=== PATIENT | male | born 1995 | race Caucasian/White ===

== ENCOUNTER 2016-12-16 13:09 | Emergency (ER) | payer OTHER ==
[~2016-12-16] VITALS: Ht 180.3 cm; Wt 113.7 kg
[2016-12-16 13:12] VITALS: BP 138/93; PULSE 72; TEMP 36.8; O2SAT 97; Ht 180.3 cm; Wt 113.7 kg
[2016-12-16] MEDS ORDERED: PENI-82 PO (13:46)
[2016-12-16] MEDS ORDERED: HYDR-5688 PO (13:46)
--- NOTE | 2016-12-16 13:47 | EMERGENCY ROOM VISIT NOTE ---
ED Visit Note First contact with patient: 13:31 CHIEF COMPLAINT: Toothache. HISTORY OF PRESENT ILLNESS: This is a 21-year-old male who ambulates into the complaining of dental pain. He reports a progressive dental pain for hours over the left mandible. The pain is now steady and severe and radiates to the face. He states that he often has an area of drainage to the tooth which was A year ago. He states that lately over the last 2-3 days he has not been able to get anything to drain and has noticed increased swelling and pain. Currently he is complaining of pain in the area of tooth . He rates his discomfort 6/10. He denies any drainage, facial swelling, trouble swallowing. REVIEW OF SYSTEMS: As noted above in History of Present Illness. 8 body systems were reviewed with this patient and found to be negative unless noted above otherwise. PMH: . None CURRENT MEDICATION: . None ALLERGIES TO MEDICATION: Patient denies. SOCIAL HISTORY: The patient recently moved to the area. He does not smoke PHYSICAL EXAM: Vital Signs: Temperature 36.8C orally; blood pressure ; heart rate ; respiratory rate . General: This is a 21-year-old male in no acute distress nontoxic appearing, afebrile and hemodynamically stable. Neurological: Awake, alert and oriented to person, place and time. Answering questions appropriately and following commands. Normal gait. Good hand eye coordination. No focal motor or sensory deficits. Skin: Warm, dry and pink. No soft tissue lesions, rashes, or trauma noted. HEENT: Atraumatic and normocephalic. Oral cavity is moist and pink. Airway is patent. Uvula is midline and no abscesses are seen. Airway is patent. Speech is normal. No drooling. No intraoral trauma is noted. There is no obvious signs of dental decay. No abscesses, erythema identified. There is mild edema noted to the left upper gum. There is no drainable abscess at this time. No cervical or submandibular lymphadenopathy. I reviewed the prescription drug monitoring website. The patient has filled several narcotic prescriptions but none recently. Current/Historical Medications Scheduled Penicillin V Potassium (Veetids), 500 MG PO QID Scheduled PRN Hydrocodone/Acetaminophen 5MG/325MG (Sun 5MG/325MG), 1 TABLET PO Q4H PRN for Pain Allergies Coded Allergies: No Known Allergies (Unverified , 12/16/16) Vital Signs Date Time Temp Pulse Resp B/P Pulse Ox O2 Delivery O2 Flow Rate FiO2 12/16/16 13:12 36.8 72 18 138/93 97 Room Air Departure Information Impression Primary Impression: Dental caries Dispostion Home / Self-Care Condition GOOD Prescriptions Hydrocodone/Acetaminophen 5MG/325MG (Sun 5MG/325MG) Tab 1 TABLET PO Q4H Y for Pain, #10 TAB For Initial Treatment Prov: Neida Oneal PA-C 12/16/16 Penicillin V Potassium (Veetids) 500 Mg Tab 500 MG PO QID, #40 TAB Prov: Neida Oneal PA-C 12/16/16 Referrals No Doctor, Assigned (PCP) Patient Instructions [facility] Additional Instructions Pen-Vee K 4 times daily for 10 days.Sun one tablet every 6 hours if needed for worse pain. Do not drink or drive while taking Sun and do not take with Tylenol. Followup with a dentist for definitive management of your tooth. Return with high fevers, worsening pain or swelling.
== END 2016-12-16 13:59 | disposition home or self-care (01) ==
LOC: C.EDB 13:10 → C.EDD 13:59
DX: K02.9 Dental caries, unspecified (principal)

== ENCOUNTER 2017-06-08 10:12 | Emergency (ER) | payer OTHER ==
[~2017-06-08] VITALS: Ht 180.3 cm; Wt 97.0 kg
[~2017-06-08 10:12] MED LIST: HYDR-5688 PO; PENI-82 PO
[2017-06-08 10:15] VITALS: TEMP 36.6; Ht 180.3 cm; Wt 97.0 kg
--- NOTE | 2017-06-08 11:21 | EMERGENCY ROOM VISIT NOTE ---
ED Visit Note First contact with patient: 11:05 CHIEF COMPLAINT: Foot pain HISTORY OF PRESENT ILLNESS: This 21-year-old male patient presents to the emergency department ambulatory complaining of swelling and pain in the right foot at rest and worse with weight bearing. The patient states that he woke up his knee was hurting. He states that his knee gave out and caused him to slip down an embankment at work and injured his right foot. The patient rates the pain as sharp and 6/10. The patient has no relief of the pain. The patient is able to walk. No numbness or weakness. No ankle pain. There are no lacerations of the foot. The patient is able to move all of their toes and their ankle without pain. The patient states that yesterday at work he was doing more physical labor than usual. He woke this morning with right knee pain. His right knee gave out and he slipped injuring his right foot. He has a history of surgery, plate and screws in the right foot. REVIEW OF SYSTEMS: GENERAL: A 6 system review of systems was completed with positives and pertinent negatives in the HPI. ALLERGIES: No known drug allergies MEDICATIONS: None PMH: None SOCIAL HISTORY: The patient lives locally. He is employed. He is a smoker. PHYSICAL EXAM: Vital Signs: Reviewed Nurse's notes, vital signs stable. GENERAL : This is a 21-year-old male, in no acute distress, but appears in pain, well- developed, well-nourished. MUSCULOSKELETAL: There is no visual deformity of the right foot. There is no erythema no ecchymosis. There is no warmth. There is tenderness and swelling over the dorsal aspect of the right foot. The range of motion of the right foot is minimally limited secondary to pain. There is no tenderness over the plantar fascia. The skin is intact and there are no lacerations or puncture wounds. Dorsalis pedis pulse 2+. Capillary refill less than 2 seconds. The right knee is without effusion, deformity, ecchymosis. There is minimal tenderness to the right lateral joint line. There is pain with Sreekanth's. There is no obvious laxity on examination. EMERGENCY DEPARTMENT COURSE: I examined the patient. An X-ray of the right foot and knee were reviewed by myself and radiology and reveals changes to the surgical site of the right foot which the patient states has been known. The patient did have some tenderness to the right fourth toe. This was not adequately visualized on the x-ray of the foot. Therefore, a dedicated toe x- ray was performed. There is no evidence for fracture or dislocation at the fourth toe. The patient was advised he will need to follow-up with orthopedics for further evaluation and management. He should return to the ER with any worsening symptoms. The patient was placed in a post-op shoe. The patient was discharged home in good condition. [~ rep ct add3]] RIGHT FOURTH TOE 3 VIEWS CLINICAL HISTORY: Fourth toe injury. FINDINGS: 3 views of the right fourth toe are correlated with radiographs of the right foot performed the same day 06/08/2017. The skeletal structures are osteopenic. There is no radiographic evidence of fourth toe fracture. The fourth metatarsophalangeal and interphalangeal joints appear preserved. Chronic posttraumatic deformity and buttress plates are identified in the second through fifth metatarsals. There is a fractured cortical lag screw transfixing the base of the buttress plate in the fifth metatarsal, and the screw protrudes towards the overlying soft tissues. IMPRESSION: 1. No acute bony abnormality seen in the fourth toe. 2. Chronic posttraumatic deformity and postoperative change is seen in the second through fifth metatarsals. 3. Again noted is a fractured screw transfixing the fifth metatarsal buttress plate. The proximal fragment protrudes towards overlying soft tissues. Follow-up of the patient's foot surgeon is recommended. RIGHT FOOT MIN 3 VIEWS ROUTINE CLINICAL HISTORY: 21 years-old Male presenting with fall, right foot pain, h/o foot surgery Right. TECHNIQUE: Frontal, oblique, and lateral views of the right foot were obtained. COMPARISON: None. FINDINGS: Cortical compression plate and screw fixation of the third through the fifth metatarsals noted as well as a long screw fixation across the bases of the fourth and fifth metatarsals. One of the cortical compression screws at the base of the fifth metatarsal has backed out and is impacting the overlying soft tissues. Additionally, there is suggestion of radiolucency along the long screw track across the bases of the fourth and fifth metatarsals. No acute fracture or malalignment. Post traumatic deformities of the neck some of the third and fourth metatarsals. IMPRESSION: One of the screws at the base of the fifth metatarsal has backed out and is impacting the overlying soft tissues. Additionally, radiolucency suggested along the course of the long screw transiting the bases of the fourth and fifth metatarsals. This is nonspecific but raises concern for loosening versus infection. [~ rep ct add3]] RIGHT KNEE 3 VIEWS CLINICAL HISTORY: 21 years-old Male presenting with fall, right knee pain Right. TECHNIQUE: Frontal, lateral, and sunrise views of the right knee were obtained. COMPARISON: None. FINDINGS: No acute fracture or malalignment. No significant degenerative change. No large effusion evident. IMPRESSION: No acute osseous injury of the right knee. Current/Historical Medications No Active Prescriptions or Reported Meds Allergies Coded Allergies: No Known Allergies (Unverified , 06/08/17) Vital Signs Date Time Temp Pulse Resp B/P (MAP) Pulse Ox O2 Delivery O2 Flow Rate FiO2 06/08/17 13:47 81 20 137/81 99 06/08/17 10:15 36.6 79 18 160/101 98 Room Air Departure Information Impression Primary Impression: Foot pain Additional Impression: Knee sprain Dispostion Home / Self-Care Condition GOOD Prescriptions No Active Prescriptions or Reported Meds Referrals No Doctor, Assigned (PCP) Aamir Ny M.D. Forms HOME CARE DOCUMENTATION FORM, IMPORTANT VISIT INFORMATION, Work Instructions Return To Work: 1 day Additional Instructions: must wear post op shoe with limited use of the right leg/foot for 1 week Patient Instructions [facility] Additional Instructions Motrin 600 mg every 6-8 hours for moderate pain Rest, ice and elevation of the right foot and knee Contact orthopedics today to schedule a follow-up appointment for further evaluation and management Return with worsening symptoms Problem Qualifiers Primary Impression: Foot pain Laterality: right Qualified Codes: M79.671 - Pain in right foot Additional Impression: Knee sprain Encounter type: initial encounter Laterality: right
--- NOTE | 2017-06-08 12:00 | DIAGNOSTIC IMAGING REPORT ---
RIGHT KNEE 3 VIEWS CLINICAL HISTORY: 21 years-old Male presenting with fall, right knee pain Right. TECHNIQUE: Frontal, lateral, and sunrise views of the right knee were obtained. COMPARISON: None. FINDINGS: No acute fracture or malalignment. No significant degenerative change. No large effusion evident. IMPRESSION: No acute osseous injury of the right knee. Electronically signed by: Victor M Martinez M.D. 06/08/2017 11:59 AM Dictated Date/Time: 06/08/2017 11:58 AM
--- NOTE | 2017-06-08 12:03 | DIAGNOSTIC IMAGING REPORT ---
RIGHT FOOT MIN 3 VIEWS ROUTINE CLINICAL HISTORY: 21 years-old Male presenting with fall, right foot pain, h/o foot surgery Right. TECHNIQUE: Frontal, oblique, and lateral views of the right foot were obtained. COMPARISON: None. FINDINGS: Cortical compression plate and screw fixation of the third through the fifth metatarsals noted as well as a long screw fixation across the bases of the fourth and fifth metatarsals. One of the cortical compression screws at the base of the fifth metatarsal has backed out and is impacting the overlying soft tissues. Additionally, there is suggestion of radiolucency along the long screw track across the bases of the fourth and fifth metatarsals. No acute fracture or malalignment. Post traumatic deformities of the neck some of the third and fourth metatarsals. IMPRESSION: One of the screws at the base of the fifth metatarsal has backed out and is impacting the overlying soft tissues. Additionally, radiolucency suggested along the course of the long screw transiting the bases of the fourth and fifth metatarsals. This is nonspecific but raises concern for loosening versus infection. Electronically signed by: Victor M Martinez M.D. 06/08/2017 12:02 PM Dictated Date/Time: 06/08/2017 11:59 AM
--- NOTE | 2017-06-08 13:11 | DIAGNOSTIC IMAGING REPORT ---
RIGHT FOURTH TOE 3 VIEWS CLINICAL HISTORY: Fourth toe injury. FINDINGS: 3 views of the right fourth toe are correlated with radiographs of the right foot performed the same day 06/08/2017. The skeletal structures are osteopenic. There is no radiographic evidence of fourth toe fracture. The fourth metatarsophalangeal and interphalangeal joints appear preserved. Chronic posttraumatic deformity and buttress plates are identified in the second through fifth metatarsals. There is a fractured cortical lag screw transfixing the base of the buttress plate in the fifth metatarsal, and the screw protrudes towards the overlying soft tissues. IMPRESSION: 1. No acute bony abnormality seen in the fourth toe. 2. Chronic posttraumatic deformity and postoperative change is seen in the second through fifth metatarsals. 3. Again noted is a fractured screw transfixing the fifth metatarsal buttress plate. The proximal fragment protrudes towards overlying soft tissues. Follow-up of the patient's foot surgeon is recommended. Electronically signed by: Robin Pineda M.D. 06/08/2017 1:10 PM Dictated Date/Time: 06/08/2017 1:07 PM
[2017-06-08 13:47] VITALS: BP 137/81; PULSE 81; O2SAT 99
== END 2017-06-08 13:49 | disposition home or self-care (01) ==
LOC: C.EDB 10:13 → C.EDD 13:49
DX: M79.671 Pain in right foot (principal); S83.91XA Sprain of unspecified site of right knee, initial encounter; W01.0XXA Fall on same level from slipping, tripping and stumbling without subsequent striking against object, initial encounter; F17.200 Nicotine dependence, unspecified, uncomplicated

== ENCOUNTER 2017-07-19 19:02 | Emergency (ER) | payer SELFPAY ==
[~2017-07-19] VITALS: Ht 180.3 cm; Wt 101.0 kg
[2017-07-19] MEDS ORDERED: SODIUM CHLORIDE 0.9% 1000ML 1,000 ML IV STA (19:15)
--- NOTE | 2017-07-19 19:19 | EMERGENCY ROOM VISIT NOTE ---
History Report prepared by Jayesh: Naveed Deutsch Under the Supervision of: Dr. Gaudencio Fierro M.D. First contact with patient: 19:15 Chief Complaint: MENTAL HEALTH EVALUATION Stated Complaint: OVERDOSE, LACERATIONS TO ARM NECK & CHEST MHID History of Present Illness The patient is a 22 year old male who presents to the Emergency Room for a mental health evaluation. He states that he has been having difficulty with his relationship with his . He states that she "does things" to his daughter while he is at work. He does not want to deal with these things anymore. He took 5 pills in total from his friend. He only remembers Xanax being one of the pills. He also inflicted self-harm to himself using a blade on his left arm, chest, and neck. He also drank alcohol. He admits suicidal ideation. 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 Positive SI. Review of Systems See HPI for pertinent positives & negatives. A total of 10 systems reviewed and were otherwise negative. Family History Patient reports no known family medical history. Social History Smoking Status: Former Smoker Alcohol Use: occasionally Drug Use: other Marital Status: Housing Status: lives with family Occupation Status: employed Current/Historical Medications No Active Prescriptions or Reported Meds Allergies Coded Allergies: No Known Allergies (Unverified , 07/19/17) Physical Exam Vital Signs Date Time Temp Pulse Resp B/P (MAP) Pulse Ox O2 Delivery O2 Flow Rate FiO2 07/20/17 09:48 37.0 58 18 119/64 96 07/20/17 09:13 58 18 119/64 96 Room Air 07/20/17 09:02 135 19 80 07/20/17 08:57 141 20 81 07/20/17 08:52 135 20 80 07/20/17 08:47 57 1 07/20/17 08:42 46 8 07/20/17 08:37 48 4 07/20/17 08:32 47 3 07/20/17 08:27 50 8 07/20/17 08:22 49 19 07/20/17 08:17 43 2 07/20/17 08:12 50 16 07/20/17 08:07 88 10 07/20/17 08:05 52 07/20/17 08:02 40 4 07/20/17 07:57 49 4 07/20/17 07:52 48 8 07/20/17 07:47 57 6 07/20/17 07:42 57 16 07/20/17 07:37 56 1 07/20/17 07:32 59 6 07/20/17 07:27 57 4 07/20/17 07:22 57 11 07/20/17 07:17 56 0 07/20/17 07:12 75 34 07/20/17 07:07 72 0 07/20/17 07:02 73 0 07/20/17 06:57 73 0 07/20/17 06:52 75 0 81 07/20/17 06:47 74 0 07/20/17 06:42 59 0 07/20/17 06:37 54 0 07/20/17 06:32 51 0 07/20/17 06:27 50 0 07/20/17 06:23 47 18 129/55 97 Room Air 07/20/17 06:22 49 0 07/20/17 06:17 55 07/20/17 06:12 60 07/20/17 06:07 66 07/20/17 06:02 52 07/20/17 05:57 50 07/20/17 05:52 86 07/20/17 05:47 57 22 07/20/17 05:42 71 19 07/20/17 05:37 60 22 07/20/17 05:32 72 21 07/20/17 05:27 60 10 07/20/17 05:22 65 22 07/20/17 05:17 57 20 100 07/20/17 05:12 58 20 100 07/20/17 05:07 55 19 100 07/20/17 05:02 56 19 100 07/20/17 04:57 50 21 100 07/20/17 04:57 50 07/20/17 04:52 51 20 07/20/17 04:47 51 19 07/20/17 04:42 54 22 07/20/17 04:37 54 22 07/20/17 04:32 63 16 95 07/20/17 04:27 53 19 96 07/20/17 04:22 54 17 95 07/20/17 04:17 64 19 97 07/20/17 04:12 62 20 97 07/20/17 04:07 64 20 97 07/20/17 04:02 71 20 96 07/20/17 03:57 65 19 96 07/20/17 03:52 74 20 97 07/20/17 03:47 73 19 96 07/20/17 03:42 66 20 96 07/20/17 03:37 63 18 96 07/20/17 03:32 57 20 97 07/20/17 03:27 56 15 97 07/20/17 03:22 67 19 96 07/20/17 03:17 54 20 97 07/20/17 03:12 57 22 96 07/20/17 03:07 56 20 96 07/20/17 03:02 60 22 96 07/20/17 02:57 63 20 97 07/20/17 02:52 55 20 97 07/20/17 02:47 56 20 96 07/20/17 02:42 65 19 96 07/20/17 02:37 64 20 96 07/20/17 02:32 63 20 95 07/20/17 02:27 72 15 97 07/20/17 02:22 64 14 96 07/20/17 02:17 63 10 96 07/20/17 02:12 64 8 96 07/20/17 02:07 64 4 95 07/20/17 02:02 56 0 96 07/20/17 01:57 60 0 96 07/20/17 01:52 56 7 96 07/20/17 01:47 61 0 96 07/20/17 01:42 65 14 96 07/20/17 01:37 66 9 96 07/20/17 01:32 64 15 96 07/20/17 01:27 65 14 96 07/20/17 01:22 68 18 96 07/20/17 01:17 70 19 96 07/20/17 01:12 75 20 96 07/20/17 01:07 73 19 96 07/20/17 01:02 75 21 96 07/20/17 00:57 72 20 97 07/20/17 00:52 73 20 96 07/20/17 00:51 62 07/20/17 00:47 68 21 96 07/20/17 00:42 67 21 96 07/20/17 00:37 62 22 96 07/20/17 00:32 64 18 96 07/20/17 00:27 66 22 95 07/20/17 00:22 64 26 94 07/20/17 00:17 68 25 95 07/20/17 00:12 85 19 96 07/20/17 00:07 67 20 96 07/20/17 00:02 71 19 96 07/19/17 23:57 68 20 96 07/19/17 23:52 64 18 96 07/19/17 23:47 63 17 96 07/19/17 23:42 74 19 96 07/19/17 23:37 74 20 96 07/19/17 23:32 74 20 96 07/19/17 23:27 74 20 96 07/19/17 23:22 75 20 95 07/19/17 23:17 73 21 96 07/19/17 23:12 73 21 96 07/19/17 23:07 69 22 95 07/19/17 23:02 72 19 97 07/19/17 22:57 67 22 96 07/19/17 22:52 63 20 96 07/19/17 22:47 67 19 96 07/19/17 22:42 57 18 96 07/19/17 22:37 82 16 98 07/19/17 22:32 69 22 94 07/19/17 22:27 62 19 95 07/19/17 22:22 69 20 95 07/19/17 22:17 71 20 95 07/19/17 22:12 71 20 95 07/19/17 22:07 72 19 95 07/19/17 22:02 75 16 95 07/19/17 21:57 77 20 95 07/19/17 21:52 76 19 95 07/19/17 21:47 79 20 95 07/19/17 21:42 81 20 94 07/19/17 21:37 80 19 95 07/19/17 21:32 76 18 132/43 98 Room Air 07/19/17 21:32 79 19 95 07/19/17 21:27 73 20 95 07/19/17 21:22 73 23 94 07/19/17 21:17 75 19 96 07/19/17 21:12 75 23 95 07/19/17 21:07 81 17 95 07/19/17 21:02 73 20 94 07/19/17 20:57 69 20 96 07/19/17 20:47 78 21 96 07/19/17 19:55 97 Room Air 07/19/17 19:52 72 24 07/19/17 19:47 75 23 07/19/17 19:42 74 23 07/19/17 19:37 80 19 96 07/19/17 19:35 96 Room Air 07/19/17 19:32 37.0 77 18 167/88 97 Room Air 07/19/17 19:32 78 25 98 07/19/17 19:27 80 23 07/19/17 19:23 85 07/19/17 19:22 85 19 99 07/19/17 19:17 87 26 100 07/19/17 19:12 82 22 167/88 100 Physical Exam GENERAL: Patient is a healthy-appearing well-nourished male HEAD: Normocephalic atraumatic EYES: Ocular movements intact pupils equal and react to light OROPHARYNX mucous membranes are moist no exudates present no erythema or edema present NECK: Supple no nuchal rigidity. Multiple superficial cuts present. Does not need to be sutured. CHEST: Good equal expansion. Multiple superficial cuts present. Does not need to be sutured. LUNGS: Clear and equal to auscultation CARDIAC: Normal S1 and S2 ABDOMEN: Soft nontender no guarding BACK: No CVA tenderness EXTREMITIES: Multiple superficial cuts to the left forearm. Does not need to be sutured. NEURO: Patient is following commands and answering questions appropriately. Alert and oriented x3 Cranial Nerves 2-12 grossly intact PSYCH: Flat affect. Positive SI. Medical Decision & Procedures Laboratory Results 07/19/17 19:45 Red Blood Count 4.89, Mean Corpuscular Volume 84.7, Mean Corpuscular Hemoglobin 27.6, Mean Corpuscular Hemoglobin Concent 32.6, Mean Platelet Volume 9.3, Neutrophils (%) (Auto) 74.4, Lymphocytes (%) (Auto) 13.6, Monocytes (%) (Auto) 10.3, Eosinophils (%) (Auto) 1.1, Basophils (%) (Auto) 0.3, Neutrophils # (Auto ) 5.60, Lymphocytes # (Auto) 1.02, Monocytes # (Auto) 0.77, Eosinophils # (Auto ) 0.08, Basophils # (Auto) 0.02 07/19/17 19:45 Test 07/19/17 19:45 07/19/17 19:53 07/19/17 20:08 07/19/17 20:53 White Blood Count 7.51 K/uL (4.8-10.8) Red Blood Count 4.89 M/uL (4.7-6.1) Hemoglobin 13.5 g/dL (14.0-18.0) Hematocrit 41.4 % (42-52) Mean Corpuscular Volume 84.7 fL (80-100) Mean Corpuscular Hemoglobin 27.6 pg (25-34) Mean Corpuscular Hemoglobin Concent 32.6 g/dl (32-36) Platelet Count 277 K/uL (130-400) Mean Platelet Volume 9.3 fL (7.4-10.4) Neutrophils (%) (Auto) 74.4 % Lymphocytes (%) (Auto) 13.6 % Monocytes (%) (Auto) 10.3 % Eosinophils (%) (Auto) 1.1 % Basophils (%) (Auto) 0.3 % Neutrophils # (Auto) 5.60 K/uL (1.4-6.5) Lymphocytes # (Auto) 1.02 K/uL (1.2-3.4) Monocytes # (Auto) 0.77 K/uL (0.11-0.59) Eosinophils # (Auto) 0.08 K/uL (0-0.5) Basophils # (Auto) 0.02 K/uL (0-0.2) RDW Standard Deviation 39.0 fL (36.4-46.3) RDW Coefficient of Variation 12.7 % (11.5-14.5) Immature Granulocyte % (Auto) 0.3 % Immature Granulocyte # (Auto) 0.02 K/uL (0.00-0.02) Prothrombin Time 11.0 SECONDS (9.0-12.0) Prothromb Time International Ratio 1.0 (0.9-1.1) Activated Partial Thromboplast Time 28.4 SECONDS (21.0-31.0) Partial Thromboplastin Ratio 1.1 Anion Gap 8.0 mmol/L (3-11) Est Creatinine Clear Calc Drug Dose 114.9 ml/min Estimated GFR () 97.5 Estimated GFR (Non- 84.1 BUN/Creatinine Ratio 10.3 (10-20) Calcium Level 8.5 mg/dl (8.5-10.1) Total Bilirubin 0.3 mg/dl (0.2-1) Direct Bilirubin 0.1 mg/dl (0-0.2) Aspartate Amino Transf (AST/SGOT) 35 U/L (15-37) Alanine Aminotransferase (ALT/SGPT) 54 U/L (12-78) Alkaline Phosphatase 80 U/L (45-117) Total Creatine Kinase 1253 U/L (39-308) Total Protein 6.7 gm/dl (6.4-8.2) Albumin 3.5 gm/dl (3.4-5.0) Lipase 322 U/L (73-393) Salicylates Level < 1.7 mg/dl (2.8-20) Acetaminophen Level < 2 ug/ml (10-30) Bedside Glucose 109 mg/dl (70-99) Ethyl Alcohol mg/dL < 3.0 mg/dl (0-3) Urine Color YELLOW Urine Appearance TURBID (CLEAR) Urine pH 6.0 (4.5-7.5) Urine Specific [place] 1.030 (1.000-1.030) Urine Protein NEG (NEG) Urine Glucose (UA) NEG (NEG) Urine Ketones TRACE (NEG) Urine Occult Blood NEG (NEG) Urine Nitrite NEG (NEG) Urine Bilirubin NEG (NEG) Urine Urobilinogen NEG (NEG) Urine Leukocyte Esterase NEG (NEG) Urine WBC (Auto) 1-5 /hpf (0-5) Urine RBC (Auto) 0-4 /hpf (0-4) Urine Hyaline Casts (Auto) 5-10 /lpf (0-5) Urine Epithelial Cells (Auto) 10-20 /lpf (0-5) Urine Bacteria (Auto) NEG (NEG) Urine Opiates Screen NEG (NEG) Urine Methadone, Qualitative NEG (NEG) Urine Barbiturates NEG (NEG) Urine Phencyclidine (PCP) Level NEG (NEG) Ur Amphetamine/Methamphetamine POS (NEG) MDMA (Ecstasy) Screen NEG (NEG) Urine Benzodiazepines Screen POS (NEG) Urine Cocaine Metabolite NEG (NEG) Urine Marijuana (THC) POS (NEG) Labs reviewed by ED physician. Medications Administered Medications (Trade) Dose Ordered Sig/Gabriele Route Start Time Stop Time Status Last Admin Dose Admin Sodium Chloride 1,000 ml @ 999 mls/hr Q1H1M STAT IV 07/19/17 19:15 07/19/17 20:15 DC 07/19/17 19:50 999 MLS/HR ECG Indication: toxicologic Rate (beats per minute): 72 Rhythm: normal sinus Findings: no acute ischemic change, no ectopy ED Course 1914: Past medical records reviewed. The patient was evaluated in room A7. A complete history and physical examination was performed. Ordered Sodium Chloride 1000 ml @ 999 mls/hr IV 0030: The patient was signed out to Dr. Gonzalez at the change in shifts. Medical Decision Differential diagnosis: Etiologies such as mood disorder, infection, hypoglycemia, electrolyte abnormalities, cardiac sources, intracerebral event, toxicologic, neurologic, as well as others were entertained. This is a 22-year-old male who presents emergency department after taking several pills including Suboxone as well as Xanax. The patient is not prescribed these pills. The patient is under stress at home as he feels he is getting a divorce from his . In addition the patient has also cut himself multiple times on his chest his neck as well as his arm. His tetanus shot is up -to-date. The patient was being medically cleared by me when he slowly became more more unresponsive. In retrospect I think the patient Xanax and Suboxone have interacted. He was placed on a monitor the probe position. He was monitored frequently throughout the night until his medications cleared his system. The patient was signed out to Dr. Gonzalez at change of shift. Medication Reconcilliation Current Medication List: was personally reviewed by me Blood Pressure Screening Patient's blood pressure: Elevated blood pressure Blood pressure disposition: Elevated BP felt to be situational Impression Primary Impression: Mood disorder Scribe Attestation The scribe's documentation has been prepared under my direction and personally reviewed by me in its entirety. I confirm that the note above accurately reflects all work, treatment, procedures, and medical decision making performed by me. Departure Information Dispostion Still a Patient Prescriptions No Active Prescriptions or Reported Meds Referrals No Doctor, Assigned (PCP) Patient Instructions My [facility]
[2017-07-19 19:32] VITALS: Ht 180.3 cm; Wt 101.0 kg
[2017-07-19 19:55] VITALS: O2SAT 97
[2017-07-19 20:02] LABS: BASO % 0.3 %; BASO ABS # 0.02 K/uL (0-0.2); COMPLETE YES; EOS % 1.1 %; HEMATOCRIT 41.4 % (42-52); IG% 0.3 %; LYMPH % 13.6 %; LYMPH ABS # 1.02 K/uL (1.2-3.4); MEAN CELL VOLUME 84.7 fL (80-100); MEAN CORPUSCULAR HEMOGLOBIN 27.6 pg (25-34); MEAN CORPUSCULAR HGB CONC 32.6 g/dl (32-36); MEAN PLATELET VOLUME 9.3 fL (7.4-10.4); MONO % 10.3 %; NEUT % 74.4 %; PLATELET COUNT 277 K/uL (130-400); RED BLOOD COUNT 4.89 M/uL (4.7-6.1); WHITE BLOOD COUNT 7.51 K/uL (4.8-10.8)
[2017-07-19 20:11] LABS: PARTIAL THROMBOPLASTIN RATIO 1.1
[2017-07-19 20:26] LABS: BUN/CREATININE RATIO 10.3 (10-20); CALCIUM 8.5 mg/dl (8.5-10.1); CREATININE 1.2 mg/dl (0.60-1.40); POTASSIUM 3.7 mmol/L (3.5-5.1)
[2017-07-19 20:27] LABS: ACETAMINOPHEN < 2 ug/ml (10-30)
[2017-07-19 21:10] LABS: URINE APPEARANCE TURBID (CLEAR); URINE BILIRUBIN NEG (NEG); URINE COLOR YELLOW; URINE NITRITE NEG (NEG); UROBILINOGEN NEG (NEG)
[2017-07-19 21:12] LABS: MANUAL MICROSCOPIC REQUIRED? NO; REVIEW REQ? NO
[2017-07-19 21:28] LABS: BENZODIAZEPINE, URINE POS (NEG); COCAINE,URINE NEG (NEG); PHENCYCLIDINE, URINE NEG (NEG)
--- NOTE | 2017-07-20 06:48 | EMERGENCY ROOM VISIT NOTE ---
ED Visit Note First contact with patient: 03:14 I received this patient in signout at the change of shift from Dr. Fierro pending a more sober state. The patient slept through the night. Mental health evaluation has been completed and a bed search is underway. Please see Dr. Garrett's notes for final disposition. The patient does not require any medications at this time.
[2017-07-20 09:48] VITALS: BP 119/64; PULSE 58; TEMP 37; O2SAT 96
--- NOTE | 2017-07-20 13:16 | EMERGENCY ROOM VISIT NOTE ---
ED Visit Note First contact with patient: 07:17 I assumed care at the change of shift, Dr. Gonzalez had been the physician just prior to me. The patient was undergoing a bed search for a voluntary psychiatric admission. He was accepted at [facility]. He will be sent there for his psychiatric stay. The paperwork for transport was completed. The patient has been cooperative while under my care.
[2017-07-22 09:58] LABS: HYDROXYETHYLFLURAZEPAM CONF NEGATIVE NG/ML (CUTOFF=50); HYDROXYMIDAZOLAM NEGATIVE NG/ML (CUTOFF=50); HYDROXYTRIAZOLAM CONF NEGATIVE NG/ML (CUTOFF=50); TEMAZEPAM CONF NEGATIVE NG/ML (CUTOFF=50)
== END 2017-07-20 09:49 ==
LOC: EDBD 19:02 → C.EDC 19:07 → C.EDA 07-20 09:49
DX: F39 Unspecified mood [affective] disorder (principal); S51.812A Laceration without foreign body of left forearm, initial encounter; S11.91XA Laceration without foreign body of unspecified part of neck, initial encounter; S21.119A Laceration without foreign body of unspecified front wall of thorax without penetration into thoracic cavity, initial encounter; T42.4X2A Poisoning by benzodiazepines, intentional self-harm, initial encounter; X78.8XXA Intentional self-harm by other sharp object, initial encounter; Z87.891 Personal history of nicotine dependence; Z63.79 Other stressful life events affecting family and household

== ENCOUNTER 2017-09-03 15:47 | Emergency (ER) | payer SELFPAY ==
[~2017-09-03] VITALS: Ht 180.3 cm; Wt 98.4 kg
[2017-09-03 15:53] VITALS: TEMP 36.5; Ht 180.3 cm; Wt 98.4 kg
[2017-09-03] MEDS ORDERED: LORAZEPAM 1 MG TAB SL STA (16:33)
--- NOTE | 2017-09-03 16:40 | EMERGENCY ROOM VISIT NOTE ---
History Report prepared by Jayesh: Bryce Duncan Under the Supervision of: Dr. Robin Garrett M.D. First contact with patient: 16:26 Chief Complaint: SEIZURE Stated Complaint: PASSED OUT,SEIZURE Nursing Triage Summary: "passed out" ? seizure activity History of Present Illness The patient is a 22 year old male who presents to the Emergency Room with complaints of an episode of syncope beginning an hour and a half ago. The patient states that he had a panic attack earlier today that might have caused his symptoms. He notes that he went to work today and began to feel lightheaded and had blurry vision. He reports that he took a break, and then proceeded to return to work. He states that the next thing he remembers was being on the ground with his coworkers surrounding him. He notes that his coworker told him that he was "shaking and having a seizure." He reports that his head hit a pile of mulch but denies any bumps on his head. He states that he has no previous history of seizures. He denies biting his tongue or urinating on himself. He notes that he had previously been taking Ativan for his depression, but reports that he stopped taking his medication a week ago after he ran out. He denies any history of kidney problems and diabetes, but notes that he had a history of bronchitis when he was younger. The patient states that he has tried to hurt himself in the past, but does not currently have any suicidal plans although he has had some recent random suicidal thoughts. Source of History: patient Onset: an hour and a half ago Position: other (global) Quality: other (syncope) Timing: other (an episode) Note: He complains of lightheadedness and blurry vision prior to his episode. He denies any bumps on his head, biting his tongue, or urinating himself. Review of Systems See HPI for pertinent positives & negatives. A total of 10 systems reviewed and were otherwise negative. Past Medical & Surgical Medical Problems: (1) Bronchitis (2) Depression Family History Patient reports no known family medical history. No pertinent family history stated. Social History Smoking Status: Current Every Day Smoker Alcohol Use: occasionally Drug Use: other Marital Status: Housing Status: lives with family Occupation Status: employed Current/Historical Medications Scheduled PRN Lorazepam (Ativan), 1 MG PO TID PRN for Anxiety/Agitation Allergies Coded Allergies: No Known Allergies (Unverified , 07/19/17) Physical Exam Vital Signs Date Time Temp Pulse Resp B/P (MAP) Pulse Ox O2 Delivery O2 Flow Rate FiO2 09/03/17 18:30 79 22 149/68 96 Room Air 09/03/17 17:39 67 16 135/74 96 09/03/17 17:39 69 09/03/17 15:53 36.5 90 20 157/87 97 Room Air Physical Exam GENERAL: Patient is in no acute distress. HEENT: No acute trauma, normocephalic atraumatic, mucous membranes moist, no nasal congestion, no scleral icterus. NECK: No stridor, no adenopathy, no meningismus, trachea is midline. LUNGS: Clear to auscultation bilaterally, no wheeze, no rhonchi, breath sounds equal. HEART: Without murmurs gallops or rubs, regular rate and rhythm. ABDOMEN: Soft, nontender, bowel sounds positive, no hernias, no peritonitis. EXTREMITIES: No cyanosis or edema, full range of motion of all the joints without pain or difficulty, no signs for acute trauma. NEUROLOGIC: Oriented x 3, no acute motor or sensory deficits, no focal weakness. SKIN: No rash, no jaundice, no diaphoresis. PSYCH: Cooperative, tearful at times, admits to suicidal thoughts with no plan or intent. Medical Decision & Procedures ER Provider Diagnostic Interpretation: Radiology results as stated below per my review and radiologist interpretation: HEAD CT NONCONTRAST Findings: A 2.2 cm retention cyst within the left sphenoid sinus. The mastoid air cells are clear. The calvarium and skull base are intact. The ventricles and sulci are within normal limits. There is no mass, hematoma, midline shift, or acute infarct. Impression: No acute intracranial abnormality. If this is the patient's first reported seizure then a follow-up nonemergent brain MRI is recommended for further evaluation. Electronically signed by: Erlin Rodriguez M.D. 09/03/2017 5:20 PM Laboratory Results 09/03/17 16:30 09/03/17 16:30 Test 09/03/17 16:30 09/03/17 16:50 09/03/17 16:53 Red Blood Count 5.24 M/uL (4.7-6.1) Mean Corpuscular Volume 87.8 fL (80-100) Mean Corpuscular Hemoglobin 29.6 pg (25-34) Mean Corpuscular Hemoglobin Concent 33.7 g/dl (32-36) RDW Standard Deviation 42.5 fL (36.4-46.3) RDW Coefficient of Variation 13.3 % (11.5-14.5) Mean Platelet Volume 9.2 fL (7.4-10.4) Anion Gap 9.0 mmol/L (3-11) Est Creatinine Clear Calc Drug Dose 114.4 ml/min Estimated GFR () 98.5 Estimated GFR (Non- 85.0 BUN/Creatinine Ratio 13.5 (10-20) Calcium Level 9.5 mg/dl (8.5-10.1) Total Bilirubin 0.6 mg/dl (0.2-1) Aspartate Amino Transf (AST/SGOT) 38 U/L (15-37) Alanine Aminotransferase (ALT/SGPT) 43 U/L (12-78) Alkaline Phosphatase 93 U/L (45-117) Total Protein 8.1 gm/dl (6.4-8.2) Albumin 4.5 gm/dl (3.4-5.0) Globulin 3.6 gm/dl (2.5-4.0) Albumin/Globulin Ratio 1.3 (0.9-2) Thyroid Stimulating Hormone (TSH) 1.100 uIu/ml (0.300-4.500) Salicylates Level < 1.7 mg/dl (2.8-20) Acetaminophen Level < 2 ug/ml (10-30) Urine Color DK YELLOW Urine Appearance CLEAR (CLEAR) Urine pH 5.5 (4.5-7.5) Urine Specific [place] 1.037 (1.000-1.030) Urine Protein TRACE (NEG) Urine Glucose (UA) NEG (NEG) Urine Ketones 1+ (NEG) Urine Occult Blood NEG (NEG) Urine Nitrite NEG (NEG) Urine Bilirubin NEG (NEG) Urine Urobilinogen NEG (NEG) Urine Leukocyte Esterase NEG (NEG) Urine WBC (Auto) 1-5 /hpf (0-5) Urine RBC (Auto) 5-10 /hpf (0-4) Urine Hyaline Casts (Auto) 1-5 /lpf (0-5) Urine Epithelial Cells (Auto) 5-10 /lpf (0-5) Urine Bacteria (Auto) NEG (NEG) Urine Opiates Screen NEG (NEG) Urine Methadone, Qualitative NEG (NEG) Urine Barbiturates NEG (NEG) Urine Phencyclidine (PCP) Level NEG (NEG) Ur Amphetamine/Methamphetamine NEG (NEG) MDMA (Ecstasy) Screen NEG (NEG) Urine Benzodiazepines Screen NEG (NEG) Urine Cocaine Metabolite NEG (NEG) Urine Marijuana (THC) POS (NEG) Ethyl Alcohol mg/dL < 3.0 mg/dl (0-3) Laboratory results reviewed by me. Medications Administered Medications (Trade) Dose Ordered Sig/Gabriele Route Start Time Stop Time Status Last Admin Dose Admin Lorazepam (Ativan Tab) 1 mg NOW STAT SL 09/03/17 16:33 09/03/17 16:36 DC 09/03/17 16:50 1 MG ECG Indication: syncope Rate (beats per minute): 75 Rhythm: normal sinus Findings: no acute ischemic change, no ectopy ED Course 1629: The patient was evaluated in room B11. A complete history and physical exam was performed. 1633: Lorazepam 1mg SL 1747: The psych registered nurse hh case manager spoke to the patient. He is ready to be discharged from a psych standpoint. 1839: Reevaluated the patient. Discussed results and discharge instructions: He verbalized understanding and agreement. The patient is ready for discharge. Medical Decision Differential diagnoses include: seizure, syncope, Ativan withdrawal, electrolyte abnormality, anemia, intracranial bleeding or mass, suicidal ideation, depression, and anxiety. There is no leukocytosis or concerning anemia. No significant electrolyte abnormality, kidney failure or hepatitis. The patient appears to be in a euthyroid state. Brain CT shows no acute bleed or mass effect. EKG shows a normal sinus rhythm, no acute ischemia. Urine tox shows marijuana. Aspirin, Tylenol and alcohol levels were undetectable. Urinalysis does not show evidence for infection. The patient was given Ativan sublingual, he did well with this medication. He has been asymptomatic during his ER stay. He was seen by our psychiatry case management services, he was not felt in need of a hospital stay. The patient was adamant that he was not going to harm himself. The patient's event today sounds like anxiety and panic with syncope. He woke up and remembers being on the ground. I do not think he suffered a true seizure. There was no postictal phase. He did not bite his tongue or lose urinary continence. He has no seizure history. The patient is being discharged with some Ativan to use as needed for anxiety. He was given information on arranging outpatient family doctor follow-up as well as counselor follow-up. He has agreed to return here if feeling suicidal or worsening. He was discharged in stable condition. Medication Reconcilliation Current Medication List: was personally reviewed by me Blood Pressure Screening Patient's blood pressure: Elevated blood pressure Blood pressure disposition: Elevated BP felt to be situational Impression Primary Impression: Syncope Additional Impression: Anxiety Scribe Attestation The scribe's documentation has been prepared under my direction and personally reviewed by me in its entirety. I confirm that the note above accurately reflects all work, treatment, procedures, and medical decision making performed by me. Departure Information Dispostion Home / Self-Care Prescriptions Lorazepam (ATIVAN) 1 Mg Tab 1 MG PO TID Y for Anxiety/Agitation, #10 TAB Prov: Robin Garrett M.D. 09/03/17 Referrals No Doctor, Assigned (PCP) Forms HOME CARE DOCUMENTATION FORM, IMPORTANT VISIT INFORMATION Patient Instructions My [facility] Additional Instructions use ativan as needed for anxiety--use sparingly return for return of symptoms no driving with the Ativan return if feeling suicidal or if the depression is worsening arrange for outpt doctor for followup Problem Qualifiers
[2017-09-03 16:51] LABS: MEAN CELL VOLUME 87.8 fL (80-100); MEAN CORPUSCULAR HEMOGLOBIN 29.6 pg (25-34); MEAN CORPUSCULAR HGB CONC 33.7 g/dl (32-36); MEAN PLATELET VOLUME 9.2 fL (7.4-10.4); PLATELET COUNT 291 K/uL (130-400); RED BLOOD COUNT 5.24 M/uL (4.7-6.1); WHITE BLOOD COUNT 8.75 K/uL (4.8-10.8)
[2017-09-03 17:10] LABS: MANUAL MICROSCOPIC REQUIRED? NO; REVIEW REQ? NO; URINE APPEARANCE CLEAR (CLEAR); URINE COLOR DK YELLOW; URINE NITRITE NEG (NEG); URINE PH 5.5 (4.5-7.5); URINE SPECIFIC GRAVITY 1.037 (1.000-1.030); UROBILINOGEN NEG (NEG); ZZUR CULT IF INDIC CLEAN CATCH NO
[2017-09-03 17:10] LABS: BUN/CREATININE RATIO 13.5 (10-20); CALCIUM 9.5 mg/dl (8.5-10.1); CREATININE 1.19 mg/dl (0.60-1.40); POTASSIUM 3.8 mmol/L (3.5-5.1)
[2017-09-03 17:12] LABS: URINE BILIRUBIN NEG (NEG)
[2017-09-03 17:21] LABS: ALB/GLOB RATIO 1.3 (0.9-2); THYROID STIMULATING HORMONE 1.1 uIu/ml (0.300-4.500)
--- NOTE | 2017-09-03 17:22 | DIAGNOSTIC IMAGING REPORT ---
HEAD CT NONCONTRAST CT DOSE: 537.48 mGy.cm HISTORY: Seizure. EVALUATE FOR PSYCH CLEARANCE TECHNIQUE: Multiaxial CT images of the head were performed without the use of intravenous contrast. Automated exposure control was utilized for this study. A dose lowering technique was utilized adhering to the principles of ALARA. Comparison: None. Findings: A 2.2 cm retention cyst within the left sphenoid sinus. The mastoid air cells are clear. The calvarium and skull base are intact. The ventricles and sulci are within normal limits. There is no mass, hematoma, midline shift, or acute infarct. Impression: No acute intracranial abnormality. If this is the patient's first reported seizure then a follow-up nonemergent brain MRI is recommended for further evaluation. Electronically signed by: Erlin Rodriguez M.D. 09/03/2017 5:20 PM Dictated Date/Time: 09/03/2017 5:17 PM
[2017-09-03 17:30] LABS: ACETAMINOPHEN < 2 ug/ml (10-30)
[2017-09-03 17:50] LABS: BENZODIAZEPINE, URINE NEG (NEG); COCAINE,URINE NEG (NEG); PHENCYCLIDINE, URINE NEG (NEG)
[2017-09-03] MEDS ORDERED: ATV/1 PO (18:23)
[2017-09-03 18:30] VITALS: BP 149/68; PULSE 79; O2SAT 96
== END 2017-09-03 18:37 | disposition home or self-care (01) ==
LOC: C.EDB 15:49
DX: R55 Syncope and collapse (principal); F41.9 Anxiety disorder, unspecified; F32.9 Major depressive disorder, single episode, unspecified; F17.200 Nicotine dependence, unspecified, uncomplicated